=== PATIENT | female | born 1965 | race Two or more races ===

== ENCOUNTER 2023-07-10 15:32 | Observation (INO) | payer OTHER ==
[2023-07-10 15:47] VITALS: BMI 28.3
[2023-07-10] MEDS ORDERED: KETOROLAC TROMETHAMINE 15 MG/ML VIAL IVPUSH ONE (18:22)
[2023-07-10 18:45] LABS: BASO % 0.9 % (0-2.0); EOS % 0.8 % (0-4.5); HEMATOCRIT 38.7 % (32.4-45.2); HEMOGLOBIN 12.6 GM/dL (10.7-15.3); LYMPH % 21.7 % (8-40); MCH 29.6 pg (25.7-33.7); MCHC 32.7 g/dl (32.0-36.0); MEAN CELL VOLUME 90.8 fl (80-96); MEAN PLT VOLUME 7.3 fl (7.5-11.1); MONO % 8.2 % (3.8-10.2); NEUT % 68.4 % (42.8-82.8); PLATELET COUNT 381 10^3/uL (134-434); RBC 4.26 M/mm3 (3.60-5.2); RDW 13.7 % (11.6-15.6); WHITE BLOOD COUNT 8.7 K/mm3 (4.0-10.0)
[2023-07-10 18:49] LABS: INR 1.1 (0.83-1.09); PROTHROMBIN TIME (PATIENT) 12.8 SEC (9.7-13.0)
[2023-07-10 19:04] LABS: POTASSIUM 4.9 mmol/L (3.5-5.1)
[2023-07-10 19:06] LABS: BLOOD UREA NITROGEN 39.6 mg/dL (7-18); CALCIUM 9.9 mg/dL (8.5-10.1)
[2023-07-10 19:07] LABS: ALBUMIN 3.6 g/dl (3.4-5.0)
[2023-07-10 19:11] LABS: BILIRUBIN,TOTAL 0.4 mg/dL (0.2-1)
[2023-07-11 01:54] LABS: URINE APPEARANCE CLEAR; URINE BILIRUBIN NEGATIVE (NEGATIVE); URINE COLOR YELLOW; URINE GLUCOSE (UA) NEGATIVE (NEGATIVE); URINE KETONE NEGATIVE (NEGATIVE); URINE LEUK ESTERASE NEGATIVE (NEGATIVE); URINE NITRITE NEGATIVE (NEGATIVE); URINE PROTEIN NEGATIVE (NEGATIVE); URINE UROBILINOGEN 0.2 mg/dL (0.2-1.0)
[2023-07-11] MEDS ORDERED: ACETAMINOPHEN INJECTION 100 ML IVPB ONE (08:10)
[2023-07-11 08:25] LABS: HEMATOCRIT 35.7 % (32.4-45.2); MCH 30.2 pg (25.7-33.7); MCHC 33.5 g/dl (32.0-36.0); MEAN CELL VOLUME 90.4 fl (80-96); MEAN PLT VOLUME 7.5 fl (7.5-11.1); PLATELET COUNT 338 10^3/uL (134-434); RBC 3.95 M/mm3 (3.60-5.2); WHITE BLOOD COUNT 6.8 K/mm3 (4.0-10.0)
[2023-07-11] MEDS: ACETAMINOPHEN 1000 MG/100 ML BAG IVPB PRN ×2 (08:30→22:32)
[2023-07-11] MEDS: INSULIN SLIDING SCALE (NOVOLOG) 1 VIAL SQ SCH ×4 (08:35→22:33)
[2023-07-11 08:39] LABS: POTASSIUM 4.8 mmol/L (3.5-5.1)
[2023-07-11 08:41] LABS: BLOOD UREA NITROGEN 40.4 mg/dL (7-18); CALCIUM 9.6 mg/dL (8.5-10.1)
[2023-07-11 08:45] LABS: CREATININE 0.9 mg/dL (0.55-1.3)
[2023-07-11 08:59] LABS: CHOLESTEROL 199 mg/dL (50-200)
[2023-07-11 09:00] LABS: LDL CHOLESTEROL (ONLY SJRH) 97 mg/dL (5-100)
[2023-07-11 09:02] LABS: HDL CHOLESTEROL 75 mg/dL (40-60)
[2023-07-11] MEDS ORDERED: KETOROLAC TROMETHAMINE 10 MG TABLET PO ONE (10:00)
[2023-07-11] MEDS: LISINOPRIL 20 MG TABLET PO SCH ×2 (11:08→12:36)
[2023-07-11] MEDS: ENOXAPARIN NA (PORCINE) 40 MG/0.4 ML DISP.SYRIN SQ SCH (11:08)
[2023-07-11] MEDS: LIDOCAINE 4% PATCH TP SCH (11:09)
[2023-07-11] MEDS ORDERED: ONDANSETRON 4 MG/2 ML VIAL ONE (12:00)
[2023-07-11] MEDS: ATORVASTATIN CA 20 MG TABLET (FP) PO SCH (22:32)
[2023-07-11] MEDS: LIDOCAINE PATCH REMOVAL MC SCH (22:32)
[2023-07-12] MEDS: INSULIN SLIDING SCALE (NOVOLOG) 1 VIAL SQ SCH ×4 (06:20→21:14)
[2023-07-12] MEDS: LIDOCAINE 4% PATCH TP SCH (09:40)
[2023-07-12] MEDS: ENOXAPARIN NA (PORCINE) 40 MG/0.4 ML DISP.SYRIN SQ SCH (09:40)
[2023-07-12] MEDS: LISINOPRIL 20 MG TABLET PO SCH (09:41)
[2023-07-12] MEDS: ACETAMINOPHEN 1000 MG/100 ML BAG IVPB SCH ×2 (15:55→22:35)
[2023-07-12] MEDS: GABAPENTIN 300 MG CAPSULE PO SCH ×2 (15:57→21:15)
[2023-07-12] MEDS: LIDOCAINE PATCH REMOVAL MC SCH (21:15)
[2023-07-12] MEDS: ATORVASTATIN CA 20 MG TABLET (FP) PO SCH (21:15)
[2023-07-13] MEDS: ACETAMINOPHEN 1000 MG/100 ML BAG IVPB SCH (06:05)
[2023-07-13] MEDS: GABAPENTIN 300 MG CAPSULE PO SCH ×3 (06:05→22:33)
[2023-07-13] MEDS: INSULIN SLIDING SCALE (NOVOLOG) 1 VIAL SQ SCH ×4 (06:11→22:49)
[2023-07-13 10:20] LABS: EOS % 1.7 % (0-4.5); HEMATOCRIT 35.8 % (32.4-45.2); HEMOGLOBIN 12.1 GM/dL (10.7-15.3); LYMPH % 34.8 % (8-40); MCH 30.8 pg (25.7-33.7); MCHC 33.9 g/dl (32.0-36.0); MEAN PLT VOLUME 7.5 fl (7.5-11.1); MONO % 9.1 % (3.8-10.2); NEUT % 53.4 % (42.8-82.8); PLATELET COUNT 327 10^3/uL (134-434); RBC 3.94 M/mm3 (3.60-5.2); RDW 13.3 % (11.6-15.6); WHITE BLOOD COUNT 5.2 K/mm3 (4.0-10.0)
[2023-07-13] MEDS: LIDOCAINE 4% PATCH TP SCH (10:35)
[2023-07-13] MEDS: LISINOPRIL 20 MG TABLET PO SCH (10:36)
[2023-07-13] MEDS: ENOXAPARIN NA (PORCINE) 40 MG/0.4 ML DISP.SYRIN SQ SCH (10:36)
[2023-07-13 10:38] LABS: POTASSIUM 4.4 mmol/L (3.5-5.1)
[2023-07-13 10:39] LABS: CALCIUM 9.4 mg/dL (8.5-10.1)
[2023-07-13 10:40] LABS: ALBUMIN 3.1 g/dl (3.4-5.0); BLOOD UREA NITROGEN 40.3 mg/dL (7-18)
[2023-07-13 10:43] LABS: CREATININE 1.1 mg/dL (0.55-1.3)
[2023-07-13 10:45] LABS: BILIRUBIN,TOTAL 0.4 mg/dL (0.2-1); TOT PROT 7.3 g/dl (6.4-8.2)
[2023-07-13] MEDS: SODIUM CHLORIDE 1,000 ML IV SCH (12:14)
[2023-07-13] MEDS: ACETAMINOPHEN 1000 MG/100 ML BAG IVPB PRN ×2 (16:49→22:37)
[2023-07-13] MEDS: DEXAMETHASONE SOD PHOSPHATE 4 MG/1 ML VIAL IVPUSH SCH (16:49)
[2023-07-13] MEDS: ATORVASTATIN CA 20 MG TABLET (FP) PO SCH (22:33)
[2023-07-13] MEDS: LIDOCAINE PATCH REMOVAL MC SCH (22:38)
[2023-07-14] MEDS: GABAPENTIN 300 MG CAPSULE PO SCH ×3 (06:30→22:07)
[2023-07-14] MEDS: INSULIN SLIDING SCALE (NOVOLOG) 1 VIAL SQ SCH ×4 (06:55→22:09)
[2023-07-14 08:10] LABS: HEMATOCRIT 33.7 % (32.4-45.2); HEMOGLOBIN 11.4 GM/dL (10.7-15.3); MCH 30.7 pg (25.7-33.7); MCHC 33.8 g/dl (32.0-36.0); MEAN CELL VOLUME 90.8 fl (80-96); MEAN PLT VOLUME 7.6 fl (7.5-11.1); PLATELET COUNT 319 10^3/uL (134-434); RBC 3.71 M/mm3 (3.60-5.2); RDW 13.4 % (11.6-15.6); WHITE BLOOD COUNT 6.2 K/mm3 (4.0-10.0)
[2023-07-14 08:30] LABS: POTASSIUM 4.7 mmol/L (3.5-5.1)
[2023-07-14 08:37] LABS: BLOOD UREA NITROGEN 44.2 mg/dL (7-18); CALCIUM 9.8 mg/dL (8.5-10.1)
[2023-07-14 08:42] VITALS: RESP 18
[2023-07-14] MEDS: LIDOCAINE 4% PATCH TP SCH (09:46)
[2023-07-14] MEDS: LISINOPRIL 20 MG TABLET PO SCH (09:47)
[2023-07-14] MEDS: ENOXAPARIN NA (PORCINE) 40 MG/0.4 ML DISP.SYRIN SQ SCH (09:47)
[2023-07-14] MEDS: DEXAMETHASONE SOD PHOSPHATE 4 MG/1 ML VIAL IVPUSH SCH (09:47)
[2023-07-14] MEDS: SODIUM CHLORIDE 1,000 ML IV SCH ×2 (11:26→11:37)
[2023-07-14 18:03] VITALS: PULSE 83
[2023-07-14] MEDS: LIDOCAINE PATCH REMOVAL MC SCH (22:07)
[2023-07-14] MEDS: ATORVASTATIN CA 20 MG TABLET (FP) PO SCH (22:07)
[2023-07-14 22:39] VITALS: BP 123/73; TEMP 97.6
== END 2023-07-14 22:10 | disposition left against medical advice (07) ==
LOC: JER 15:32 → UNDOADMIN 18:16 → JERBED 18:16 → INTOOBSV 22:02 → UNDOADMOB 22:02 → JERBED 22:02 → J5S 07-11 09:59 → JERBED 07-11 09:59 → J5S 07-11 15:34
PROVIDERS: ADMIT Internal Medicine
PROC: 3E033NZ Introduction of Analgesics, Hypnotics, Sedatives into Peripheral Vein, Percutaneous Approach (ICD-10-PCS; principal; 2023-07-11)
PROC: 3E033GC Introduction of Other Therapeutic Substance into Peripheral Vein, Percutaneous Approach (ICD-10-PCS; 2023-07-11)
PROC: 3E023GC Introduction of Other Therapeutic Substance into Muscle, Percutaneous Approach (ICD-10-PCS; 2023-07-11)
PROC: 3E0333Z Introduction of Anti-inflammatory into Peripheral Vein, Percutaneous Approach (ICD-10-PCS; 2023-07-11)
DX: M54.2 Cervicalgia (principal); M62.81 Muscle weakness (generalized); M25.512 Pain in left shoulder; E11.9 Type 2 diabetes mellitus without complications; M54.9 Dorsalgia, unspecified; E04.1 Nontoxic single thyroid nodule; I10 Essential (primary) hypertension; E78.5 Hyperlipidemia, unspecified
CPT/HCPCS: 36415; 71260-TC; 72050-TC-FY; 72070-TC-FY; 72141-TC; 72142-TC; 74177-TC; 80048; 80053; 80061; 81003; 82962; 83036; 84484; 85025; 85027; 85610; 86850; 86900; 86901; 87086; 93005; 93010; 96372; 96374; 96375; 96376; 97116-GP; 97162-GP; 99285-25; G0378; Q9967